=== PATIENT | male | born 1975 | race Two or more races ===

== ENCOUNTER 2017-08-17 16:36 | Emergency (ER) | payer SELFPAY ==
[~2017-08-17] VITALS: Ht 167.6 cm; Wt 70.5 kg
[2017-08-17 17:26] VITALS: BP 188/130
== END 2017-08-17 17:43 | disposition home or self-care (01) ==
LOC: ED 17:35
DX: K04.7 Periapical abscess without sinus (principal); F17.200 Nicotine dependence, unspecified, uncomplicated
CPT/HCPCS: 99283